=== PATIENT | female | born 1965 | race Caucasian/White ===

== ENCOUNTER → 2017-07-14 11:02 | Outpatient (CLI) | payer MEDICARE, MEDICAID | END | disposition home or self-care (01) | LOC: D.US 11:02 | DX: M79.605 Pain in left leg (principal); M79.604 Pain in right leg ==

== ENCOUNTER → 2017-08-17 17:09 | Outpatient (CLI) | payer MEDICARE, MEDICAID | END | disposition home or self-care (01) | LOC: D.MAMMO 13:00 | DX: Z12.31 Encounter for screening mammogram for malignant neoplasm of breast (principal) ==

== ENCOUNTER → 2019-02-05 10:44 | Outpatient (CLI) | payer MEDICARE, MEDICAID ==
--- NOTE | 2019-02-09 09:53 | ST ---
PATIENT:ERIC BENITEZ MEDICAL RECORD: [id number] SEX: F LOCATION:[facility] ORDER #: ADMISSION DATE: 02/05/19 AGE OF PATIENT: 53 REFERRING PHYSICIAN: INTERPRETING PHYSICIAN: ELIDIA VENTURA MD DATE OF SERVICE: 02/05/2019 PROCEDURE: Nuclear stress test. INDICATION: Chest pain, abnormal ECG, hypertension. The patient was exercised on standard Lexiscan protocol with 33 mCi injected of the sestamibi at peak stress, 11 mCi were done previously for rest images. FINDINGS: Gated SPECT reveals a preserved ejection fraction at 67% with good wall motioning and thickening and brightening throughout all segments. SPECT imaging Cardiolite was used as myocardial fusion agent. There is definite reversibility anteriorly and apically. This includes the basal, mid apical anterior segments as well as the apex itself. The degree reversibility is moderate. The amount of myocardium involved is large. OVERALL IMPRESSION: 1. This is an abnormal nuclear stress test. Reversible ischemia anteroapically. 2. Gated SPECT reveals preserved ejection fraction greater than 60%. In this patient with ongoing symptomatology, the current scan does suggest the presence of hemodynamically significant coronary artery disease. We would proceed with coronary angiography as followup study. TRANSINT:[id number] Voice Confirmation ID: [id number] DOCUMENT ID: [id number] ELIDIA VENTURA MD at 0953 CC: CLARISSA WILLAMS MD [id number] DICTATION DATE: 02/05/19 1624 BUSINESS ANALYST CONSULTANT: 02/06/19 1035 DEP CLI 02/05/[address] [address]
== END | disposition home or self-care (01) ==
LOC: D.HCCARDIO 02-01 08:30
PROVIDERS: ATTEND Internal Medicine Interventional Cardiology
DX: I20.9 Angina pectoris, unspecified (principal)

== ENCOUNTER 2019-02-15 10:56 | Outpatient (CLI) | payer MEDICARE, MEDICAID ==
[~2019-02-15] VITALS: Ht 157.5 cm; Wt 84.1 kg
--- NOTE | ~2019-02-15 | HEMODYNAMI ---
PATIENT:ERIC BENITEZ MEDICAL RECORD: [id number] : 61 LOCATION:[facility] ADMISSION DATE: 02/15/19 Generatedon:02/15/201913:35 Patient name: ERIC BENITEZ Patient #: [id number] SSN: : 1965 Date of study: 02/15/2019 Page: Of Hemodynamic Procedure Report Patient Data Patient Demographics Procedure consent was obtained First Name: ERIC Gender: Female Last Name: ELI : 1965 Patient #: [id number] Age: 53 year(s) Race: Unknown Additional ID: [id number] Contact details [address]: [address] [place] [address] State: [place] City: [place] Zip code: [address] Past Medical History Allergies: No known allergies Admission Admission Data Admission Date: 02/15/2019 Admission Time: 10:56 Lab Results Lab Result Date: 02/15/2019 Lab Result Time: 11:20 Biochemistry Name Units Result Min Max BUN mg/dl 13 --(--*-)-- 7 18 Creatinine mg/dl 0.7 --(*---)-- 0.6 1.3 CBC Name Units Result Min Max Hematocrit % 34 *-(----)-- 42 54 Hemoglobin g/dl 11.1 *-(----)-- 13.5 17.5 Procedure Procedure Types Cath Procedure Diagnostic Procedure [facility] w/Coronaries Sedation Charges Moderate Sedation up to 15 minutes Procedure Description Procedure Date Procedure Date: 02/15/2019 Procedure Start Time: 13:23 Procedure End Time: 13:32 Procedure Staff Name Function Dirk Rai MD Performing Physician Zach Curry RT Monitor Brayden Tarango RN Nurse Giancarlo Webb RT Scrub Procedure Data Cath Procedure Fluoroscopy Diagnostic fluoroscopy Total fluoroscopy Time: 0.6 time: 0.6 min min Diagnostic fluoroscopy Total fluoroscopy dose: 160 dose: 160 mGy mGy Contrast Material Contrast Material Type Amount (ml) Isovue 300 51 Entry Location Entry Primary Successful Side Size Upsize Upsize Entry Closure Clement ccessful Closure Location (Fr) 1 (Fr) 2 (Fr) Remarks Device Remarks Radial Right 6 Fr Mechanical artery Short Compression Estimated blood loss: 5 ml Diagnostic catheters Device Type Used For End Catheter Placement DIAGNOSTIC Hinckley 110cm 5 Procedure Fr catheter ([id number]) Procedure Complications No complications Procedure Medications Medication Administration Route Dosage Oxygen etCO2 Nasal cannula 2 l/min Lidocaine 2% added to field 20 Heparin Flush Bag added to field 2 bags (1000units/500ml NS) 0.9% NaCl I.V. 100 ml/hr Radial Cocktail added to field 1 syringe (Verapomil 2mg/Nitro 400mcg/Heparin 1500units) Versed I.V. 2 mg Fentanyl I.V. 100 mcg Versed I.V. 2 mg Fentanyl I.V. 100 mcg Versed I.V. 2 mg Fentanyl I.V. 100 mcg Hemodynamics Rest HGB: 11.1 (g/dl) Heart Rate: 73 (bpm) Pressure Samples Time Site Value (mmHg) Purpose Heart Use Rate(bpm) 13:27 LV 80/33,28 Snapshot 80 Gradients Valve Time Site Site Mean SEP/DFP Peak To Heart Use 1 2 (mmHg) (sec/min) Peak Rate (mmHg) (bpm) Aortic 13:27 LV AO 63 Snapshots Pre Cath Intra NCS Post Cath Vital Signs Time Heart Resp SPO2 etCO2 NIBP (mmHg) Rhythm Pain Sedation Rate (ipm) (%) (mmHg) Status Level (bpm) 12:13:25 65 16 97 38.2 122/76(105) NSR 0 (11) 10(A) , No pain 13:17:49 67 19 92 0 132/70(99) NSR 0 (11) 10(A) , No pain 13:22:11 69 16 92 0 120/70(94) NSR 0 (11) 10(A) , No pain 13:26:39 69 13 94 0 108/49(63) NSR 0 (11) 9(A) , No pain 13:30:49 70 14 94 0 93/62(82) NSR 0 (11) 9(A) , No pain 13:34:20 70 14 94 0 106/59(70) NSR 0 (11) 10(A) , No pain Medications Time Medication Route Dose Verified Delivered Reason Notes Effectiveness by by 13:09:56 Oxygen etCO2 2 l/min Buffie Buffie used for Nasal Emelina Tarango RN procedure cannula 13:10:03 Lidocaine 2% added 20ml Latrellie Dirk for local to vial Emelina Rai anesthetic field LARRY 13:10:10 Heparin Flush added 2 bags Latrellie Dirk used for Bag to Emelina Rai procedure (1000units/500ml field LARRY NS) 13:10:19 0.9% NaCl I.V. 100 Buffie Buffie Per ml/hr Emelina Tarango RN physician 13:10:27 Radial Cocktail added 1 Buffie Dirk for (Verapomil to syringe Emelina Rai vasodilation 2mg/Nitro field LARRY 400mcg/Heparin 1500units) 13:16:55 Versed I.V. 2 mg Buffie Buffie for sedation Emelina RN Emelina RN 13:17:01 Fentanyl I.V. 100 mcg Buffie Buffie for sedation Tarango RN Emelina RN 13:24:02 Versed I.V. 2 mg Buffie Buffie for sedation Tarango RN Emelina RN 13:24:08 Fentanyl I.V. 100 mcg Buffie Buffie for sedation Tarango RN Emelina RN 13:28:52 Versed I.V. 2 mg Buffie Buffie for sedation Tarango RN Emelina RN 13:28:56 Fentanyl I.V. 100 mcg Buffie Buffie for sedation Emelina Tarango application defense manager Log Time Note 12:34:56 Brayden Tarango RN sent for patient. Start room use. 12:34:57 Time tracking: Regular hours (M-F 7:00 - 5:00) 12:35:00 Plan of Care:Hemodynamics will remain stable., Cardiac rhythm will remain stable., Comfort level will be maintained., Respiratory function will remain adequate., Patient/ family verbilizes understanding of procedure., Procedure tolerated without complication., Recovers from procedure without complications.. 12:58:08 Patient received from Pre/Post Procedure Room to [facility] 3 Alert and oriented. Tansferred to table in Supine position. 12:58:09 Warm blankets applied, and memo hugger turned on for patient comfort. 12:58:10 Correct patient and procedure confirmed by team. 12:58:11 Signed procedure consent form obtained from patient. 12:58:12 ECG and BP/O2 sat monitors applied to patient. 13:05:54 Vital chart was started 13:09:37 Vital chart was stopped 13:09:38 Vital chart was started 13:09:56 Oxygen 2 l/min etCO2 Nasal cannula was administered by Brayden Tarango RN; used for procedure; 13:10:03 Lidocaine 2% 20ml vial added to field was administered by Dirk Rai MD; for local anesthetic; 13:10:10 Heparin Flush Bag (1000units/500ml NS) 2 bags added to field was administered by Dirk Rai MD; used for procedure; 13:10:19 0.9% NaCl 100 ml/hr I.V. was administered by Brayden Tarango RN; Per physician; 13:10:27 Radial Cocktail (Verapomil 2mg/Nitro 400mcg/Heparin 1500units) 1 syringe added to field was administered by Dirk Rai MD; for vasodilation; 13:12:47 Baseline sample Acquired. 13:12:51 Rhythm: sinus rhythm 13:12:53 Full Disclosure recording started 13:13:58 H&P Date Dictated: 01/25/2019 Within 30 days and on chart., H&P Addendum completed by physician on day of procedure. (MUST COMPLETE FOR ALL OUTPATIENTS). 13:14:00 Family in waiting room. 13:14:02 Patient NPO since Breakfast. 13:14:07 Patient allergic to No known allergies 13:14:08 Is the patient allergic to Iodine/contrast media? No. 13:14:09 Is patient on blood thinner?No 13:14:10 Patient diabetic? No. 13:14:14 Previous problem with sedation/anesthesia? No ? 13:14:19 Snore? Yes 13:14:20 Sleep apnea? Yes 13:14:20 Deviated septum? No 13:14:21 Opens mouth fully? Yes 13:14:21 Sticks out tongue? Yes 13:14:27 Airway obstruction? Yes ASTHMA 13:14:32 Dentures? Yes OUT 13:14:35 Pre procedure: right dorsailis pedis pulse 2+ Normal; easily identifiable; not easily obliterated 13:14:37 Modified Rickey's test Ulnar < 7 seconds 13:14:39 Patient pain scale 0/10 ?. 13:14:45 IV patent on arrival in left wrist with 0.9% NaCl at [facility]. 13:15:16 Lab Result : BUN 13 mg/dl 13:15:17 Lab Result : Creatinine 0.7 mg/dl 13:15:17 Lab Result : Hemoglobin 11.1 g/dl 13:15:17 Lab Result : Hematocrit 34 % 13:15:19 Lab results completed and on chart. 13:15:21 Right Radial & Right Groin area was prepped with chlora-prep and draped in sterile fashion 13:15:24 Alarms reviewed by R. N. 13:15:25 Sharps counted by scrub and verified by R.N. 13:15:27 Use device set Radial Dx or PCI 13:15:28 ACIST Syringe (80537) opened to sterile field. 13:15:29 Medline Cath Pack ([id number]) opened to sterile field. 13:15:29 Bag Decanter (2002S) opened to sterile field. 13:15:30 DIAGNOSTIC WIRE .035 260cm J wire (650829) opened to sterile field. 13:15:30 ACIST Hand Control (22300) opened to sterile field. 13:15:31 ACIST Manifold (18365) opened to sterile field. 13:15:32 Tegaderm 4 x 4 (1626W) opened to sterile field. 13:15:32 MBrace Wrist Support ([id number]) opened to sterile field. 13:15:37 SHEATH 6FR Slender (801060) opened to sterile field. 13:15:43 Physician arrived 13:15:46 --------ALL STOP TIME OUT------ 13:15:47 Final Timeout: patient, procedure, and site verified with staff and physician. All members of the team are in agreement. 13:15:48 Right Radial & Right Groin site verified by team. 13:15:52 Maximum allowable Isovue 300 dose 300ml. Physician notified. (300ml for normal creatinines. For patients with creatinine of 1.7 or higher multiply weight(kg) x 5 divided by creatinine.) 13:15:56 Fire Safety Assessment: A--An alcohol-based skin anteseptic being used preoperatively., C--Open oxygen or nitrous oxide is being used., D--An ESU, laser, or fiber-optic light is being used. 13:15:58 Physical assessment completed. ASA score P 2 - A patient with mild systemic disease as per Dirk Rai MD. 13:16:00 Sedation plan: IV Moderate Sedation Medication:Versed, Fentanyl 13:16:55 Versed 2 mg I.V. was administered by Brayden Tarango RN; for sedation; 13:17:01 Fentanyl 100 mcg I.V. was administered by Brayden Tarango RN; for sedation; 13:23:01 Zero performed for pressure channel P1 13:23:29 Procedure started. 13:23:33 Local anesthetic to right radial artery with Lidocaine 2% by Dirk Rai MD.INITIAL ACCESS ONLY 13:23:39 A 6 Fr Short sheath was inserted into the Right Radial artery 13:24:02 Versed 2 mg I.V. was administered by Brayden Tarango RN; for sedation; 13:24:08 Fentanyl 100 mcg I.V. was administered by Brayden Tarango RN; for sedation; 13:26:03 A DIAGNOSTIC Hinckley 110cm 5 Fr catheter (577324) was advanced over the wire and used for Procedure. 13:27:12 LV hemodynamics recorded. 13:27:19 LV gram done using NIÑO 13:27:31 EF : 55 % 13::41 Injector settings: Ml/sec: 5, Volume: 15, 13:28:01 LCA angiography performed. 13:28:52 Versed 2 mg I.V. was administered by Brayden Tarango RN; for sedation; 13::56 Fentanyl 100 mcg I.V. was administered by Brayden Tarango RN; for sedation; 13:29:01 RCA angiography performed. 13:29:35 Catheter removed. 13:29:37 TR BAND Standard ([id number]) opened to sterile field. 13:29:48 Sheath removed intact; hemostasis achieved with Mechanical Compression to the Right Radial artery. 13:29:53 Procedure ended.(Physican Out) 13:30:11 Fluoroscopy time 00.60 minutes. 13:30:18 Fluoroscopy dose: 160 mGy 13:30:18 Flurop Dose total: 160 13:30:21 Contrast amount:Isovue 300 51ml. 13:30:23 Sharps counted by scrub and verified by R.N. 13:30:39 TR band inflated with 10cc of air. 13:30:40 Insertion/operative site no bleeding no hematoma. 13:30:41 Post Procedure Pulses reassessed and unchanged 13:30:52 Post-procedure physical assessment completed. ASA score P 2 - A patient with mild systemic disease as per Dirk Rai MD. 13:31:03 Post procedure rhythm: unchanged. 13:31:06 Estimated blood loss: 5 ml 13:31:06 Post procedure instruction explained to patient.Patient verbalizes understanding. 13:31:07 Patient needs reinforcement of post procedure teaching. 13:31:27 Procedure type changed to Cath procedure, Diagnostic procedure, LHC, LHC w/Coronaries, Sedation Charges, Moderate Sedation up to 15 minutes 13:32:29 Procedure and supply charges have been captured, reviewed, submitted and are correct. 13:32:31 Procedure Complication : No complications 13:32:33 See physician's report for complete and final results. 13:32:34 Report given to Pre/Post Procedure Room. 13:32:54 Patient transfered to Pre/Post Procedure Room with Stretcher. 13:32:56 Procedure ended. 13:32:56 Full Disclosure recording stopped 13:33:13 End room use (Document Last) 13:35:25 Vital chart was stopped Device Usage Item Name Manufacture Quantity Catalog Hospital Part Current Minimal Lot# / Number Charge Number Stock Stock Serial# Code ACIST Acist 1 26406 106563 920375 954883 20 Syringe Medical (45168) Systems Inc Medline Medline 1 [id number] 901397 02290 523218 5 Cath Pack ([id number]) Bag Microtek 1 2001S 544120 41876 818605 5 Decanter Medical Inc. () DIAGNOSTIC [facility] 1 425211 221733 289832 237214 30 WIRE .035 260cm J wire (700423) ACIST Hand Acist 1 56831 936967 808366 927586 5 Control Medical (01704) Systems Inc ACIST Acist 1 48654 512796 359328 722706 5 Manifold Medical (15375) Systems Inc Tegaderm 4 3M 1 1626W 723489 521378 752236 5 x 4 (1626W) MBrace Advanced 1 140-0250-00 380871 15373 263076 5 Wrist Vascular Support Dynamics ([id number]) SHEATH 6FR Terumo 1 [id number] 817088 897127 965045 5 Slender (80-1060) DIAGNOSTIC Terumo 1 40-2695 972216 696702 232273 5 Hinckley 110cm 5 Fr catheter (298085) TR BAND Terumo 1 [id number]-LDY 118702 746610 610941 40 Standard ([id number]) Signature Audit Mcgrath Stage Time Signature Unsigned Intra-Procedure 02/15/2019 Zach Curry 1:35:19 PM RT(R) Signatures Monitor : Zach Curry RT Signature : Date : Time : [address] [place] [address]
[2019-02-15] MEDS ORDERED: FLUTICASONE PRO16 GM NASAL (11:07)
[2019-02-15] MEDS ORDERED: ALBUTEROL SULF8.5 GM INH (11:08)
[2019-02-15] MEDS ORDERED: TIROSINT88 MCG PO (11:08)
[2019-02-15] MEDS ORDERED: BYSTOLIC5 MG PO (11:08)
[2019-02-15] MEDS ORDERED: CYCLOBENZAPRINE10 MG PO (11:09)
[2019-02-15 11:27] VITALS: BP 146/76; Ht 157.5 cm; Wt 84.1 kg
[2019-02-15 11:30] LABS: BASOPHILS 0.5 % (0-2); EOSINOPHILS 4.5 % (0-7); HEMOGLOBIN 11.1 g/dL (12-16); IMMATURE GRANULOCYTES 0.2 % (0-5); LYMPHOCYTES 38.5 % (15-50); MCH 28.4 pg (26.0-34.0); MCHC 32.6 g/dL (31.0-37.0); MEAN PLATELET VOLUME 10.3 fL (7.4-10.4); NEUTROPHILS 48.3 % (40-80); PLATELET COUNT 139 10x3/uL (130-400); RBC 3.91 10x6/uL (4.00-5.40); RDW 14.3 % (11.5-14.5); WBC 5.6 10x3/uL (4.8-10.8)
[2019-02-15 11:43] LABS: CALC OSMOLALITY 282 mosm/kg (275-300); CALCIUM 8.3 mg/dL (8.5-10.1); CHLORIDE - SERUM 106 mmol/L (98-107); CREATININE - SERUM 0.7 mg/dL (0.6-1.3); GLUCOSE 97 mg/dL (74-106); POTASSIUM - SERUM 3.8 mmol/L (3.5-5.1); SODIUM 142 mmol/L (136-145); UREA NITROGEN 13 mg/dL (7-18); eGFR NON AFRICAN AMERICAN > 90 mL/min (90-120)
--- NOTE | 2019-02-15 13:45 | NUR ---
PT RECEIVED FROM DEHYDRATION UNIT OPERATOR VIA STRETCHER. PT SLEEPING BUT VERBALLY AROUSABLE. TR BAND AND IMMOBILIZER IN PLACE, DRESSING CDI NO BLEEDING OR HEMATOMA NOTED. CAP REFILL BRISK. HR NSR RATE 72, BP 111/51, 02 SAT 95, PLACED ON 2L 02 VIA NC. PT DENIES PAIN OR DISCOMFORT. CALL LIGHT IN REACH. S/O AT BEDSIDE
--- NOTE | 2019-02-15 14:04 | NUR ---
PT SLEEPING COMFORTABLY, TR BAND IN PLACE NO BLEEDING OR HEMATOMA NOTED. DRESSING REMAINS CDI. VSS, CALL LIGHT IN REACH
--- NOTE | 2019-02-15 14:34 | NUR ---
PT STILL SLEEPING, TR BAND AND IMMOBILIZER IN PLACE. DRESSING REMAINS CDI NO BLEEDING NOTED. VSS. CALL LIGHT IN REACH. S/O AT BEDSIDE
--- NOTE | 2019-02-15 14:47 | NUR ---
3CC AIR REMOVED FROM TR BAND, SM AMOUNT OF BLEEDING, REPLACED AIR. NO HEMATOMA NOTED. WILL WAIT FEW MINUTES AND TRY AGAIN PER PROTOCOL. HOB ELEVATED. SANDWICH AND DRINK SERVED PER PT REQUEST.
--- NOTE | 2019-02-15 15:00 | NUR ---
4CC AIR REMOVED FROM TR BAND, NO BLEEDING OR SWELLING NOTED. PT UP EATING AND VISITING W FAMILY. VSS. CALL LIGHT IN REACH. DENIES OTHER NEEDS.
--- NOTE | 2019-02-15 15:20 | NUR ---
DISCHARGE INSTRUCTIONS REVIEWED W PT AND S/O BOTH VERBALIZED UNDERSTANDING. IV REMOVED W CATH INTACT. MONITORS AND O2 REMOMOVED. 3 ADD'L CC AIR REMOVED FROM TR BAND, NO BLEEDING OR SWELLING NOTED. PT UP TO DRESS FOR DISCHARGE.
--- NOTE | 2019-02-15 15:38 | NUR ---
TR BAND AND REMAINING AIR REMOVED. NO BLEEDING OR SWELLING NOTED. 2X2 AND TEGADERM DRESSING APPLIED. IMMOBILIZER REPLACED. PT DISCHARGED VIA WC TO PRIVATE VEHICLE
--- NOTE | 2019-02-17 09:58 | OP ---
PATIENT NAME: ERIC BENITEZ MEDICAL RECORD: [id number] :61 LOCATION:D.[facility] ADMISSION DATE: SURGEON: CESAR VIDAL MD DATE OF OPERATION: 02/15/2019 PROCEDURE: Left heart catheterization, selective coronary angiography, right radial approach. CATHETERS: [place] catheter, radial sheath. Procedure was well tolerated. The patient returned to the navarro. Sheath was removed. TR band was placed. FINDINGS: Left ventriculography in 30-degree NIÑO view: Normal wall motion, normal systolic function. CORONARY ANATOMY: LEFT MAIN: Left main is free of disease. LAD: Luminal irregularity, no flow obstructive coronary artery disease. CIRCUMFLEX: Free of disease. RIGHT CORONARY ARTERY: Dominant artery, gives rise to PDA, free of disease. IMPRESSION: Normal LV systolic function, normal coronary anatomy. TRANSINT:[id number] Voice Confirmation ID: [id number] DOCUMENT ID: [id number] CESAR VIDAL MD at 0958 CC: [id number] DICTATION DATE: 02/15/19 1334 CAM MILLING MACHINE OPERATOR: 02/15/19 1400 DEP CLI 02/15/19 [place] [id number] [place] [address]
== END 2019-02-15 15:35 | disposition home or self-care (01) ==
LOC: D.CATH 10:56
PROVIDERS: ATTEND Internal Medicine Interventional Cardiology
DX: I20.9 Angina pectoris, unspecified (principal); Z01.812 Encounter for preprocedural laboratory examination

== ENCOUNTER → 2020-07-18 08:41 | Outpatient (CLI) | payer MEDICARE, MEDICAID ==
[2019-02-15 11:27] VITALS: BMI 33.9
[~2020-07-18 08:41] MED LIST: ALBUTEROL SULF8.5 GM INH; BYSTOLIC5 MG PO; CYCLOBENZAPRINE10 MG PO; FLUTICASONE PRO16 GM NASAL; TIROSINT88 MCG PO
--- NOTE | 2020-07-23 09:11 | EC ---
PATIENT:ERIC BENITEZ DATE OF SERVICE: 07/18/20 SEX: F MEDICAL RECORD: [id number] DATE OF : [birth year] LOCATION:D[facility] AGE OF PATIENT: 55 ADMISSION DATE: 07/18/20 REFERRING PHYSICIAN: INTERPRETING PHYSICIAN: CESAR VIDAL MD ECHOCARDIOGRAM REPORT ECHO CHARGES 4 ECHO COMPLETE Date: 07/18/20 CLINICAL DIAGNOSIS: HTN/EDEMA/DEYSPNEA/ ASSESS EF ECHOCARDIOGRAPHIC MEASUREMENTS (adult normal given) AC root (d.<3.7cm) 3.1 cm LV Septum d (<1.2 cm> 1.1 cm Valve Excursion 1.9 cm LV Septum (systole) 1.6 cm Left Atria (s.<4.0cm> 3.9 cm LVPW d(<1.2cm) 1.6 cm RV (d.<2.3cm) 3.2 cm LVPW (sytole) 2.0 cm LV diastole(<5.6CM) 3.7 cm MV E-F(>70mm/sec) cm LV systole 2.6 cm LVOT Diameter 1.8 cm MV exc.(>10mm) 1.4 cm Est.ejection fraction (50-75%) % DOPPLER: LVIT cm/sec A 102.0cm/sec E 118.0 cm/sec LA cm/sec RVSP 20 mmHg LVOT 113 cm/sec AOP1/2T m/s Asc. Ao 176 cm/sec RVOT 107 cm/sec RA cm/sec PA 133 cm/sec AV Gradient Peak 12.42mmHg AV Mean 5.80 mmHg AV Area 1.8 cm MV Gradient Peak 6.74 mmHg MV Mean 3.53 mmHg MV Area cm COMMENTS: Network Security Officer: 2 VIPUL CONLEY Hay Chopper: 3 Dr. Mayes TAPE# PACS Pericardial Effusion N DATE OF SERVICE: Adequate 2D, color flow imaging, spectral Doppler and M-mode. No LVH. LV internal dimension is normal. Wall motion is normal. EF is greater than or equal to 55%. Aortic valve is tricuspid. No evidence of stenosis by Doppler interrogation. Left atrium is normal. Mitral valve shows no prolapse. Trace MR. Right-sided chambers are grossly normal. Trace TR. TRANSINT:[id number] Voice Confirmation ID: [id number] DOCUMENT ID: [id number] ECHOCARDIOGRAM REPORT [id number] ERIC BENITEZ GREGORY A MD at 0911 CC: [id number] DICTATION DATE: 07/22/20 120 FUR BLENDER: 07/22/203 DEP CLI 07/18/20 [place] [id number] [place] [id number]
== END | disposition home or self-care (01) ==
LOC: D.HCCECHO 08:41
PROVIDERS: ATTEND Internal Medicine Interventional Cardiology
DX: I10 Essential (primary) hypertension (principal)

== ENCOUNTER 2021-03-13 13:44 | Emergency (ER) | payer MEDICARE ==
[~2021-03-13] VITALS: Ht 157.5 cm; Wt 90.9 kg
[~2021-03-13 13:44] MED LIST changes: +DEPRESSION MED; +FUROSEMIDE20 MG
[2021-03-13 13:47] VITALS: BP 131/66; Ht 157.5 cm; Wt 90.9 kg
[2021-03-13] MEDS ORDERED: ARTHROTEC 501 TAB.EC PO (15:07)
== END 2021-03-13 15:17 | disposition home or self-care (01) ==
LOC: D.ER 13:44
DX: M47.816 Spondylosis without myelopathy or radiculopathy, lumbar region (principal); J44.9 Chronic obstructive pulmonary disease, unspecified; I10 Essential (primary) hypertension; Z99.81 Dependence on supplemental oxygen; K21.9 Gastro-esophageal reflux disease without esophagitis; Z72.0 Tobacco use

== ENCOUNTER → 2021-05-04 13:05 | Outpatient (CLI) | payer MEDICARE, MEDICAID ==
[2021-03-13 13:47] VITALS: BMI 36.6
[~2021-05-04 13:05] MED LIST changes: +ARTHROTEC 501 TAB.EC PO
== END | disposition home or self-care (01) ==
LOC: D.CT 13:05
PROVIDERS: ATTEND Family Medicine
DX: F17.200 Nicotine dependence, unspecified, uncomplicated (principal)

== ENCOUNTER → 2021-05-07 13:12 | Outpatient (CLI) | payer MEDICARE, MEDICAID ==
[2021-03-13 13:47] VITALS: BMI 36.6
== END | disposition home or self-care (01) ==
LOC: D.CT 13:12
PROVIDERS: ATTEND Family Medicine
DX: F17.200 Nicotine dependence, unspecified, uncomplicated (principal)